=== PATIENT | female | born 2000 | race Caucasian/White ===

== ENCOUNTER 2020-08-15 19:56 | Emergency (ER) | payer OTHER ==
[~2020-08-15] VITALS: Ht 152.4 cm; Wt 51.3 kg
[2020-08-15] MEDS ORDERED: PYRI1TAB5 PO (20:11)
[2020-08-15] MEDS ORDERED: [UNRECOGNIZED DRUG - OTHER] PO (20:11)
[2020-08-15] MEDS ORDERED: MACR100C43 PO (20:11)
[2020-08-15] MEDS ORDERED: BUTA1CAP PO (20:11)
[2020-08-15] MEDS ORDERED: ONDA4TAB6 PO (20:11)
[2020-08-15] MEDS ORDERED: YAZ1TAB PO (20:11)
[2020-08-15 21:08] LABS: BASO % 0.6 % (0.0-1.0); EOS # 0.2 10^3/uL (0.0-0.5); EOS % 3.6 % (0.0-3.0); HEMATOCRIT 35.1 % (36.0-47.0); HEMOGLOBIN 12.1 g/dl (12.0-15.5); LYMPH # 2.2 10^3/uL (1.5-5.0); LYMPH % 41.2 % (24.0-44.0); MEAN CORPUSCULAR HGB CONC 34.5 g/dl (32.0-36.5); MEAN CORPUSCULAR VOLUME 92.9 fl (80.0-96.0); MONO # 0.5 10^3/uL (0.0-0.8); MONO % 9.1 % (2.0-8.0); NEUTROPHILS # 2.4 10^3/uL (1.5-8.5); NEUTROPHILS % 45.1 % (36.0-66.0); PLATELET COUNT, AUTOMATED 262 10^3/uL (150-450); RED BLOOD COUNT 3.78 10^6/uL (4.00-5.40); WHITE BLOOD COUNT 5.3 10^3/uL (4.0-10.0)
[2020-08-15 22:02] VITALS: BP 97/63
== END 2020-08-15 22:05 | disposition home or self-care (01) ==
LOC: EDBD 19:56 → M ED 19:56
DX: N39.0 Urinary tract infection, site not specified (principal)